=== PATIENT | female | born 1975 | race Caucasian/White ===

== ENCOUNTER → 2024-01-21 | Emergency (ER) | payer BC ==
[2024-01-21 12:13] LABS: Absolute Lymphocytes (CBC) 1.6 K/uL (0.7-4.9); Hematocrit 39.7 % (36.0-45.0); Lymphocytes % 28.5 % (15.3-44.8); MCV 91.2 fL (80-100); MPV 7.8 fL (7.6-11.3); Platelets 239 thou/uL (152-406); RBC Red Blood Cell Count 4.35 M/uL (3.86-4.86)
[2024-01-21 12:34] LABS: Albumin 3.8 g/dL (3.4-5.0); Bilirubin Total 0.8 mg/dL (0.2-1.0); Potassium 3.9 mEq/L (3.5-5.1); Protein, Total 7.2 g/dL (6.4-8.2); Troponin High Sensitivity 6.6 pg/mL (<58.9)
--- NOTE | 2024-01-21 12:50 | RAD REPORT ---
EXAM DESCRIPTION: RAD - Chest Single View - 01/21/2024 12:44 pm CLINICAL HISTORY: COUGH COMPARISON: <Comparisons> FINDINGS: Lines: None. Lungs: No evidence of edema or pneumonia. Pleural: No significant pleural effusions or pneumothorax. Cardiac: The heart size is within normal limits. Mediastinum: Within normal limits. Bones: No acute fractures. Other: None IMPRESSION: No acute cardiopulmonary disease.
--- NOTE | 2024-01-21 13:07 | ER ---
Nurse's Notes [facility] Name: Yasmine Esparza Age: 48 yrs Sex: Female : 1975 Arrival Date: 01/21/2024 Time: 11:32 Bed 8 Private MD: Diagnosis: Essential (primary) hypertension Presentation: 01/21 11:48 Chief complaint: Patient states: BP has been running high since Friday, was seen [facility] and her BP was high, she was started on abx for URI, has been taking left over BP meds to help keep BP down , does not normally take BP med. Coronavirus screen: At this time, the client does not indicate any symptoms associated with coronavirus-19. Ebola Screen: Patient negative for fever greater than or equal to 101.5 degrees Fahrenheit, and additional compatible Ebola Virus Disease symptoms Patient denies exposure to infectious person. Patient denies travel to an Ebola-affected area in the 21 days before illness onset. No symptoms or risks identified at this time. Risk Assessment: Do you want to hurt yourself or someone else? Patient reports no desire to harm self or others. Onset of symptoms was January 19, 2024. 11:48 Method Of Arrival: Ambulatory 11:48 Acuity: PAULINE 3 iw 12:31 Initial Sepsis Screen: Does the patient meet any 2 criteria? No. Patient's initial nj1 sepsis screen is negative. Does the patient have a suspected source of infection? No. Patient's initial sepsis screen is negative. Historical: - PMHx: 11:51 None; iw - Immunization history:: Adult Immunizations unknown. - Social history:: Smoking status: unknown. Screenin:30 [facility] ED Fall Risk Assessment (Adult) Score/Fall Risk Level 0 - 2 = Low Risk nj1 Oriented to surroundings, Maintained a safe environment, Hourly rounding (assess needs \T\ fall precautionary measures) done. Abuse screen: Denies threats or abuse. Denies injuries from another. Nutritional screening: No deficits noted. Tuberculosis screening: No symptoms or risk factors identified. Assessment: 12:25 General: Appears in no apparent distress. Behavior is calm, cooperative, slightly nj1 anxious. 12:25 Pain: Denies pain. Neuro: Level of Consciousness is awake, alert, obeys commands, nj1 Oriented to person, place, time, situation. Cardiovascular: Patient's skin is warm and dry. Respiratory: Airway is patent Respiratory effort is even, unlabored. Vital Signs: 11:47 BP 171 / 74; Pulse 69; Resp 16; Temp 98.1; Pulse Ox 100% ; iw 12:31 BP 160 / 82; Pulse 58; Resp 17; Temp 98.4(O); Pulse Ox 100% on R/A; Pain 0/10; nj1 13:23 BP 172 / 79; Pulse 70; Resp 16; Pulse Ox 100% ; me1 12:31 Pain Scale: Adult ak1 ED Course: 11:36 Patient arrived in ED. mg5 11:39 Yuri Durham MD is Attending Physician. ec2 11:51 Triage completed. iw 12:05 Alicia Swenson, RN is Primary Nurse. nj1 12:10 CBC with Diff Sent. nj1 12:10 CMP Sent. nj1 12:10 Troponin High Sensitivity Sent. nj1 12:29 Arm band placed on. nj1 12:33 Patient has correct armband on for positive identification. Bed in low position. Call nj1 light in reach. Provided Education on: call light, fall precautions. 12:45 CXR XRAY In Process Unspecified. EDMS 13:23 No provider procedures requiring assistance completed. IV discontinued, intact, me1 bleeding controlled, No redness/swelling at site. Pressure dressing applied. Administered Medications: No medications were administered Medication: 13:14 VIS not applicable for this client. me1 Outcome: 13:06 Discharge ordered by MD. ec2 13:23 Discharged to home ambulatory, me1 13:23 Condition: stable 13:23 Discharge instructions given to patient, Instructed on discharge instructions, follow up and referral plans. Demonstrated understanding of instructions, follow-up care, 13:24 Patient left the ED. me1 Signatures: Dispatcher [employer] Isamar Bennett RN RN iw Alicia Swenson RN RN nj1 Eddleman, Michelle, RN RN pa1 Lashay Crooks [facility] Yuri Durham MD MD ec2 Corrections: (The following items were deleted from the chart) 11:48 11:47 Pulse 69bpm; Resp 16bpm; Pulse Ox 100%; Temp 98.1F; iw iw 12:44 12:31 BP 160 / 82; Pulse 58bpm; Resp 17bpm; Pulse Ox 97% RA; Pain 0/10, Adult; nj1 nj1
--- NOTE | 2024-01-21 13:07 | EDPHYS ---
Physician Documentation [facility] Name: Yasmine Esparza Age: 48 yrs Sex: Female : 1975 Arrival Date: 01/21/2024 Time: 11:32 Bed 8 Private MD: ED Physician Yuri Durham HPI: 01/21 11:58 This 48 yrs old Female presents to ER via Ambulatory with complaints of Blood ec2 Pressure Problem. 11:58 Patient arrives today due to concern for elevated blood pressure. Patient reports that ec2 she has noted elevated blood pressures and wanted to be evaluated. States that she had a recent illness, cough and cold symptoms, and feels that that he might have exacerbated her her blood pressure. Patient reports no difficulty breathing.. Historical: - PMHx: 11:51 None; iw - Immunization history:: Adult Immunizations unknown. - Social history:: Smoking status: unknown. ROS: 11:58 Constitutional: as per hpi ec2 Exam: 11:58 Constitutional: No acute distress ec2 Vital Signs: 11:47 BP 171 / 74; Pulse 69; Resp 16; Temp 98.1; Pulse Ox 100% ; iw 12:31 BP 160 / 82; Pulse 58; Resp 17; Temp 98.4(O); Pulse Ox 100% on R/A; Pain 0/10; nj1 13:23 BP 172 / 79; Pulse 70; Resp 16; Pulse Ox 100% ; me1 12:31 Pain Scale: Adult nj1 MDM: 11:54 Patient medically screened. ec2 11:58 Data reviewed: vital signs. ED course: Patient arrives today for evaluation of elevated ec2 blood pressure. Examination remarkable for well-appearing nontoxic individual is otherwise in no acute distress with a reassuring examination. Will obtain lab work to evaluate for endorgan dysfunction. Will suspicion for ACS, low suspicion for dissection, low suspicion for acute renal failure.. 12:29 ED course: EKG independently reviewed and interpreted by me, shows normal sinus rhythm, ec2 rate of 56, no acute ST segment elevations, nonconcerning intervals.. 13:01 ED course: Metabolic profile reassuring, CBC with reassuring blood counts, troponin ec2 within normal ranges, chest x-ray shows no acute intrathoracic process. On reassessment patient remains well-appearing in no acute distress. Will discharge home and have her follow-up with primary care doctor to discuss blood pressure management. Patient without any evidence of endorgan damage to indicate aggressively managing blood pressure at this time. . 01/21 11:54 Order name: CBC with Diff; Complete Time: 13:00 ec2 01/21 11:54 Order name: CMP; Complete Time: 13:00 ec2 01/21 11:54 Order name: Troponin High Sensitivity; Complete Time: 13:00 ec2 01/21 11:54 Order name: CXR XRAY; Complete Time: 13:00 ec2 01/21 11:54 Order name: EKG - Nurse/Tech; Complete Time: 12:29 ec2 Administered Medications: No medications were administered Disposition Summary: 01/21/24 13:06 Discharge Ordered Notes: Location: Home ec2 Problem: new ec2 Symptoms: are unchanged ec2 Condition: Stable ec2 Diagnosis - Essential (primary) hypertension ec2 Followup: ec2 - With: Private Physician - When: - Reason: Re-evaluation by your physician Discharge Instructions: - Discharge Summary Sheet me1 - Hypertension, Adult, [id number] me1 Forms: - Medication Reconciliation Form ec2 - Thank You Letter ec2 - Antibiotic Education ec2 - Prescription Opioid Use ec2 - Patient Portal Instructions ec2 - Leadership Thank You Letter ec2 Signatures: Dispatcher [employer] Isamar Bennett, TANIA MARIN iw Alicia Swenson RN RN nj1 Yuri Durham MD MD ec2 Corrections: (The following items were deleted from the chart) 12:11 12:10 Patient medically screened. ec2 ec2
[2024-01-21 13:37] VITALS: BP 172/79; TEMP 98.4; O2SAT 100
--- NOTE | 2024-01-22 16:08 | EKG ---
Test Date: 2024-01-21 Test Time: 12:24:10 [employer] Supervisor: IAN MEASUREMENT RESULTS: Intervals: Rate: 56 NM: 146 QRSD: 88 QT: 440 QTc: 424 [place]: P: 43 NM: 146 QRS: 11 T: 46 INTERPRETIVE STATEMENTS: Sinus bradycardia Otherwise normal ECG No previous ECG available for comparison Electronically Signed On 01-22-24 16:05:01 INFRASTRUCTURE TECH by George Huff
== END ==
LOC: ER 11:32
DX: I10 Essential (primary) hypertension (principal)
CPT/HCPCS: 36415; 71045; 80053; 84484; 85025; 93005

== ENCOUNTER 2024-04-04 10:24 | Emergency (ER) | payer BC ==
--- NOTE | 2024-04-04 10:41 | EDPHYS ---
Physician Documentation [facility] Name: Yasmine Esparza Age: 48 yrs Sex: Female : 1975 Arrival Date: 04/04/2024 Time: 10:24 Bed 11 Private MD: ED Physician Christian Machuca HPI: 04/04 10:46 This 48 yrs old Unknown Female presents to ER via Ambulatory with complaints of Facial sb4 Swelling. 10:46 dental pain starting on Brett, thinks a filling fell out of her tooth. left facial sb4 swelling and increased pain started this morning. denies any known fevers. Historical: - Allergies: 10:33 No Known Allergies; nj1 - PMHx: 10:33 None; nj1 - PSHx: 10:33 Tonsillectomy; section; nj1 - Immunization history:: Client reports receiving the 2nd dose of the Covid vaccine. - Infectious Disease History:: Denies. - Social history:: Smoking status: Patient denies any tobacco usage or history of. ROS: 10:46 Constitutional: Negative for fever, chills, and weight loss, sb4 10:46 ENT: Positive for dental pain, per hpi, 10:46 All other systems are negative, Exam: 10:46 Constitutional: This is a well developed, well nourished patient who is awake, alert, sb4 and in no acute distress. Eyes: Extra-ocular motions intact. Periorbital areas with no swelling, redness, or edema. Skin: Warm, dry with normal turgor. Normal color with no rashes, no lesions, and no evidence of cellulitis. 10:46 Head/face: Noted is swelling, that is mild, of the left cheek and left zygomatic area, 10:46 ENT: Dental exam: pain, that is moderate, specifically in the upper left cuspid (#11), small hole, Vital Signs: 10:32 BP 169 / 94; Pulse 68; Resp 16; Temp 98.6; Pulse Ox 100% on R/A; Weight 86.18 kg; nj1 Height 5 ft. 7 in. ; 10:32 Body Mass Index 29.76 (86.18 kg, 170.18 cm) nj1 MDM: 10:35 Patient medically screened. [facility] 10:46 Data reviewed: vital signs, nurses notes, and as a result, I will discharge patient. sb4 Counseling: I had a detailed discussion with the patient and/or guardian regarding the historical points, exam findings, and any diagnostic results supporting the discharge/admit diagnosis, the need for outpatient follow up, a dentist, to return to the emergency department if symptoms worsen or persist or if there are any questions or concerns that arise at home. Administered Medications: No medications were administered Disposition Summary: 04/04/24 10:41 Discharge Ordered Notes: Location: Home sb4 Problem: new sb4 Symptoms: have improved sb4 Condition: Stable sb4 Diagnosis - Dental infection sb4 Followup: sb4 - With: Private Physician - When: 2 - 3 days - Reason: Recheck today's complaints, Re-evaluation by your physician Discharge Instructions: - Discharge Summary Sheet sb4 - Dental Pain, [id number] sb4 Forms: - Antibiotic Education sb4 - Patient Portal Instructions sb4 - Leadership Thank You Letter sb4 Prescriptions: - Amoxicillin 875 mg Oral Tablet - take 1 tablet ORAL route every 12 hours for 10 days; 20 tablet; Refills: 0, sb4 Product Selection Permitted - Medrol (Kash) 4 mg Oral Tablets, Dose Pack - take 1 tablet ORAL route as directed - follow package instructions; 1 packet; sb4 Refills: 0, Product Selection Permitted Signatures: Christian Machuca MD MD cha Brown, Sophia, PA-C PA-C sb4 Alicia Swenson, RN RN nj1
--- NOTE | 2024-04-04 10:41 | ER ---
Nurse's Notes [facility] Name: Yasmine Esparza Age: 48 yrs Sex: Female : 1975 Arrival Date: 04/04/2024 Time: 10:24 Bed 11 Private MD: Diagnosis: Dental infection Presentation: 04/04 10:32 Chief complaint: Patient states: Woke up with left facial swelling. States she may have nj1 lost a filling to one of her teeth on the left upper side. Coronavirus screen: Vaccine status: Patient reports receiving the 2nd dose of the covid vaccine. Ebola Screen: Patient denies travel to an Ebola-affected area in the 21 days before illness onset. Initial Sepsis Screen: Does the patient meet any 2 criteria? No. Patient's initial sepsis screen is negative. Does the patient have a suspected source of infection? No. Patient's initial sepsis screen is negative. Risk Assessment: Do you want to hurt yourself or someone else? Patient reports no desire to harm self or others. Onset of symptoms was April 04, 2024. 10:32 Method Of Arrival: Ambulatory [facility] 10:32 Acuity: PAULINE [address] [facility] Triage Assessment: 10:34 General: Appears in no apparent distress. comfortable, Behavior is calm, cooperative, [facility] appropriate for age. 10:34 Pain: Denies pain. [facility] Historical: - Allergies: 10:33 No Known Allergies; nj1 - PMHx: 10:33 None; [facility] - PSHx: 10:33 Tonsillectomy; section; [facility] - Immunization history:: Client reports receiving the 2nd dose of the Covid vaccine. - Infectious Disease History:: Denies. - Social history:: Smoking status: Patient denies any tobacco usage or history of. Screenin:35 [facility] ED Fall Risk Assessment (Adult) History of falling in the last 3 months, [facility] including since admission No falls in past 3 months (0 pts) Confusion or Disorientation No (0 pts) Intoxicated or Sedated No (0 pts) Impaired Gait No (0 pts) Mobility Assist Device Used No (0 pt) Altered Elimination No (0 pt) Score/Fall Risk Level 0 - 2 = Low Risk Oriented to surroundings, Maintained a safe environment, Hourly rounding (assess needs \T\ fall precautionary measures) done. 10:35 Abuse screen: Denies threats or abuse. Denies injuries from another. Nutritional nj1 screening: No deficits noted. Tuberculosis screening: No symptoms or risk factors identified. Vital Signs: 10:32 BP 169 / 94; Pulse 68; Resp 16; Temp 98.6; Pulse Ox 100% on R/A; Weight 86.18 kg; nj1 Height 5 ft. 7 in. ; 10:32 Body Mass Index 29.76 (86.18 kg, 170.18 cm) nj1 ED Course: 10:28 Patient arrived in ED. ra3 10:29 Arlette Mcgraw PA-C is PHCP. sb4 10:29 Christian Machuca MD is Attending Physician. sb4 10:33 Triage completed. nj1 10:34 Arm band placed on right wrist. nj1 10:35 Patient has correct armband on for positive identification. Call light in reach. nj1 10:35 Provided Education on: call light, fall precautions. nj1 10:45 Patient did not have IV access during this emergency room visit. nj1 10:45 No provider procedures requiring assistance completed. nj1 Administered Medications: No medications were administered Medication: 10:45 VIS not applicable for this client. nj1 Outcome: 10:41 Discharge ordered by . sb4 10:45 Patient left the ED. nj1 10:45 Discharged to home ambulatory, nj1 10:45 Condition: stable 10:45 Discharge instructions given to patient, Instructed on discharge instructions, follow up and referral plans. medication usage, Demonstrated understanding of instructions, follow-up care, medications, Prescriptions given X 2, Signatures: Arlette Mcgraw PA-C PA-C sb4 Alicia Swenson RN RN nj1 Yanelis Burciaga ra3 Corrections: (The following items were deleted from the chart) 10:34 10:34 Arm band placed on nj1 nj1
[2024-04-04 11:20] VITALS: BP 169/94; TEMP 98.6; O2SAT 100
== END 2024-04-04 10:45 | disposition home or self-care (01) ==
LOC: ER 10:24
DX: K04.7 Periapical abscess without sinus (principal)
CPT/HCPCS: 99283